=== PATIENT | male | born 1965 | race Caucasian/White ===

== ENCOUNTER 2017-09-19 15:10 | Inpatient (IN) | payer BC ==
[~2017-09-19] VITALS: Ht 177.8 cm; Wt 77.1 kg
--- NOTE | 2017-09-19 16:03 | DIAGNOSTIC IMAGING REPORT ---
SINGLE VIEW CHEST CLINICAL HISTORY: Atypical chest pain. FINDINGS: An AP, portable, upright chest radiograph is obtained. No prior studies are available for comparison at the time of dictation. The examination is degraded by portable technique and apical lordotic positioning. The cardiomediastinal silhouette is unremarkable. The lungs and pleural spaces are clear. No pneumothorax is seen. The bony thorax is grossly intact. IMPRESSION: No active disease in the chest. Electronically signed by: Gianluca Moore M.D. 09/19/2017 4:02 PM Dictated Date/Time: 09/19/2017 4:01 PM
[2017-09-19 16:14] LABS: BASO % 0.3 %; BASO ABS # 0.02 K/uL (0-0.2); EOS % 0.6 %; EOS ABS # 0.04 K/uL (0-0.5); HEMATOCRIT 47.4 % (42-52); HEMOGLOBIN 16.6 g/dL (14.0-18.0); IG# 0.01 K/uL (0.00-0.02); LYMPH % 12.1 %; LYMPH ABS # 0.86 K/uL (1.2-3.4); MEAN CELL VOLUME 89.4 fL (80-100); MEAN CORPUSCULAR HEMOGLOBIN 31.3 pg (25-34); MONO ABS # 0.64 K/uL (0.11-0.59); NEUT % 77.9 %; NEUT ABS # 5.54 K/uL (1.4-6.5); PLATELET COUNT 262 K/uL (130-400); RED CELL DISTRIBUTION WIDTH SD 42.6 fL (36.4-46.3); WHITE BLOOD COUNT 7.11 K/uL (4.8-10.8)
[2017-09-19] MEDS ORDERED: NITROGLYCERIN 2% OINTMENT 30GM TUBE EXT ONE (16:30)
[2017-09-19 16:31] LABS: ALBUMIN 3.6 gm/dl (3.4-5.0); CALCIUM 8.5 mg/dl (8.5-10.1); CREATININE 1.3 mg/dl (0.60-1.40); POTASSIUM 3.6 mmol/L (3.5-5.1)
[2017-09-19 16:36] LABS: CKMB 1.4 ng/ml (0.5-3.6); TOTAL PROTEIN 7.1 gm/dl (6.4-8.2)
[2017-09-19] MEDS ORDERED: ASPECOTC PO (16:44)
[2017-09-19] MEDS ORDERED: ONDANSETRON INJ 2 MG/ML 2 ML VIAL IV PRN (16:45)
[2017-09-19] MEDS ORDERED: MAGNESIUM HYDROXIDE SUSP 30 ML UDC PO PRN (16:45)
[2017-09-19] MEDS ORDERED: MoRPHine SULFATE 4 MG/ML 1 ML CARP\\VIAL IV PRN (16:45)
[2017-09-19] MEDS ORDERED: POLYETHYLENE (MIRALAX) 17 GM PACK PO PRN (16:45)
[2017-09-19] MEDS ORDERED: ACETAMINOPHEN 325 MG TAB PO PRN (16:45)
[2017-09-19] MEDS ORDERED: NITROGLYCERIN 0.4 MG SL PER TAB CHARGE SL PRN (16:45)
[2017-09-19] MEDS ORDERED: ALUMINUM/MAGNESIUM/SIMETH (MAALOX MAX) 30 ML UDC PO PRN (16:45)
[2017-09-19] MEDS ORDERED: METOPROLOL TARTRATE 25 MG TAB PO ONE (16:48)
[2017-09-19] MEDS ORDERED: LORAZEPAM 2 MG/ML 1 ML VIAL IV PRN (17:45)
[2017-09-19] MEDS ORDERED: GABAPENTIN 600 MG TAB PO SCH (17:45)
[2017-09-19] MEDS ORDERED: LABETALOL HCL IV 5 MG/ML 20ML IV PRN (17:45)
[2017-09-19] MEDS ORDERED: LISINOPRIL 2.5 MG TAB PO ONE (17:55)
--- NOTE | 2017-09-19 18:08 | EMERGENCY ROOM VISIT NOTE ---
History Report prepared by Kami: Alok Torrez Under the Supervision of: Dr. Akbar Schafer M.D. First contact with patient: 15:25 Chief Complaint: CHEST PAIN Stated Complaint: TIGHTNESS IN CHEST, ELBOWS ACHING History of Present Illness The patient is a 51 year old male who presents to the Emergency Room with complaints of improving chest pain beginning 2.5 hours ago. He was walking around at work when his pain began. He describes his pain as a feeling of "tightness", and rates it as a 4/10 in severity at worst. The patient states that he also experienced some pain in his bilateral elbows. He has a history of OH (s/p two stents), and states that he experienced pains in his arms at that time as well. He states that his symptoms do not feel particularly similar to his previous heart attack. The patient notes that he had pain present when he had his ECG taken upon arrival today, but currently has no pain. Pt denies LOC, headache, fevers, chills, diaphoresis, visual changes, neck pain, tearing pain radiating to the back, personal history or family history of aneurysm or pulmonary embolism, uncontrolled hypertension, breathing difficulties, leg swelling, coagulation abnormalities, prolonged travel, recent surgery or immobilization, nausea, vomiting, abdominal pain, melena, hematochezia, urinary symptoms, numbness, weakness, lymphadenopathy, rash, or other complaints. He is on baby aspirin daily. He does not follow up with cardiology regularly and does not have a PCP. Source of History: patient Onset: 2.5 hours ago Position: chest Symptom Intensity: 4/10 at worst Quality: other ("tightness") Timing: other (improving) Note: The patient states that he also experienced some pain in his bilateral elbows. Review of Systems See HPI for pertinent positives and negatives. A total of ten systems were reviewed and were otherwise negative. Past Medical & Surgical Medical Problems: (1) Chest pain (2) HLD (hyperlipidemia) (3) Myocardial infarction Surgical Problems: (1) History of cardiac cath (2) Hx of inguinal hernia repair Family History No pertinent family history stated. Social History Smoking Status: Never Smoker Occupation Status: employed Current/Historical Medications Scheduled Aspirin (Aspirin), 325 MG PO HS Allergies Coded Allergies: No Known Allergies (Unverified , 09/19/17) Physical Exam Vital Signs Date Time Temp Pulse Resp B/P (MAP) Pulse Ox O2 Delivery O2 Flow Rate FiO2 09/19/17 16:40 88 19 98 09/19/17 16:31 167/104 09/19/17 16:21 89 09/19/17 16:10 98 Room Air 09/19/17 16:09 97 Room Air 09/19/17 16:08 165/104 09/19/17 15:15 98 18 160/116 99 Room Air Physical Exam GENERAL: Awake, alert, well-appearing, in no distress HENT: Normocephalic, atraumatic. Oropharynx unremarkable. EYES: Normal conjunctiva. Sclera non-icteric. NECK: Supple. No nuchal rigidity. FROM. No masses. RESPIRATORY: Clear to auscultation. No wheezes. No rales. Normal respiratory effort. CARDIAC: Normal rate. Normal rhythm. No murmurs. No rubs. Extremities warm and well perfused. Pulses equal. No JVD. GI: Soft, non-distended. No tenderness to palpation. No rebound or guarding. No masses. RECTAL: Deferred. MUSCULOSKELETAL: Atraumatic. Chest examination reveals no tenderness. The back is symmetrical on inspection without obvious abnormality. There is no CVA tenderness to palpation. No joint edema. LOWER EXTREMITIES: Calves are equal size bilaterally and non-tender. No edema. No discoloration. NEURO: Normal sensorium. No sensory or motor deficits noted. SKIN: No rash or jaundice noted. Medical Decision & Procedures ER Provider Diagnostic Interpretation: Radiology results as stated below per my review and radiologist interpretation: SINGLE VIEW CHEST FINDINGS: An AP, portable, upright chest radiograph is obtained. No prior studies are available for comparison at the time of dictation. The examination is degraded by portable technique and apical lordotic positioning. The cardiomediastinal silhouette is unremarkable. The lungs and pleural spaces are clear. No pneumothorax is seen. The bony thorax is grossly intact. IMPRESSION: No active disease in the chest. Electronically signed by: Gianluca Moore M.D. 09/19/2017 4:02 PM Laboratory Results 09/19/17 16:00 Red Blood Count 5.30, Mean Corpuscular Volume 89.4, Mean Corpuscular Hemoglobin 31.3, Mean Corpuscular Hemoglobin Concent 35.0, Mean Platelet Volume 10.0, Neutrophils (%) (Auto) 77.9, Lymphocytes (%) (Auto) 12.1, Monocytes (%) (Auto) 9.0, Eosinophils (%) (Auto) 0.6, Basophils (%) (Auto) 0.3, Neutrophils # (Auto) 5.54, Lymphocytes # (Auto) 0.86, Monocytes # (Auto) 0.64, Eosinophils # (Auto) 0.04, Basophils # (Auto) 0.02 09/19/17 16:00 Test 09/19/17 16:00 09/19/17 16:06 White Blood Count 7.11 K/uL (4.8-10.8) Red Blood Count 5.30 M/uL (4.7-6.1) Hemoglobin 16.6 g/dL (14.0-18.0) Hematocrit 47.4 % (42-52) Mean Corpuscular Volume 89.4 fL (80-100) Mean Corpuscular Hemoglobin 31.3 pg (25-34) Mean Corpuscular Hemoglobin Concent 35.0 g/dl (32-36) Platelet Count 262 K/uL (130-400) Mean Platelet Volume 10.0 fL (7.4-10.4) Neutrophils (%) (Auto) 77.9 % Lymphocytes (%) (Auto) 12.1 % Monocytes (%) (Auto) 9.0 % Eosinophils (%) (Auto) 0.6 % Basophils (%) (Auto) 0.3 % Neutrophils # (Auto) 5.54 K/uL (1.4-6.5) Lymphocytes # (Auto) 0.86 K/uL (1.2-3.4) Monocytes # (Auto) 0.64 K/uL (0.11-0.59) Eosinophils # (Auto) 0.04 K/uL (0-0.5) Basophils # (Auto) 0.02 K/uL (0-0.2) RDW Standard Deviation 42.6 fL (36.4-46.3) RDW Coefficient of Variation 13.0 % (11.5-14.5) Immature Granulocyte % (Auto) 0.1 % Immature Granulocyte # (Auto) 0.01 K/uL (0.00-0.02) Anion Gap 6.0 mmol/L (3-11) Est Creatinine Clear Calc Drug Dose 69.4 ml/min Estimated GFR () 73.2 Estimated GFR (Non- 63.2 BUN/Creatinine Ratio 12.8 (10-20) Calcium Level 8.5 mg/dl (8.5-10.1) Magnesium Level 2.1 mg/dl (1.8-2.4) Total Bilirubin 0.6 mg/dl (0.2-1) Direct Bilirubin 0.1 mg/dl (0-0.2) Aspartate Amino Transf (AST/SGOT) 23 U/L (15-37) Alanine Aminotransferase (ALT/SGPT) 37 U/L (12-78) Alkaline Phosphatase 80 U/L (45-117) Total Creatine Kinase 92 U/L (39-308) Creatine Kinase MB 1.4 ng/ml (0.5-3.6) Creatine Kinase MB Ratio 1.5 (0-3.0) Total Protein 7.1 gm/dl (6.4-8.2) Albumin 3.6 gm/dl (3.4-5.0) Lipase 217 U/L (73-393) Bedside D-Dimer 147 ng/mlFEU (0-450) Bedside Troponin I 0.180 ng/ml (0-0.045) Laboratory results reviewed by me Medications Administered Medications (Trade) Dose Ordered Sig/Abdelrahman Route Start Time Stop Time Status Last Admin Dose Admin Nitroglycerin (Nitroglycerin 2% Oint) 1 inch NOW ONCE EXT 09/19/17 16:30 09/19/17 16:31 DC 09/19/17 16:49 1 INCH ECG Per My Interpretation Indication: chest pain Rate (beats per minute): 94 Rhythm: normal sinus Findings: other (Non-specific ST changes. No ST elevation. ) Comparison ECG Date: no prior available ED Course 1531: The patient was evaluated in room B8. A complete history and physical exam was performed. 1630: Ordered Nitroglycerin 2% Oint 1 inch EXT. 1635: Upon reexamination, the patient was resting comfortably. I discussed the test results and treatment plan with him. The patient will be evaluated for further management. Medical Decision Triage Nursing notes reviewed and agree them. The patient's history was concerning for chest pain. Differential diagnosis: Etiologies such as cardiac ischemia, aortic dissection, pulmonary embolism, pneumonia, pneumothorax, musculoskeletal, infections, pericarditis, myocarditis , esophageal rupture, gastrointestinal, as well as others were entertained. Physical examination: As above. ER treatment provided: Nitro ointment Patient took aspirin prior to arrival. On reassessment the patient felt well. He was pain-free. Diagnostic interpretation by me: The electrocardiogram was as above. The labs revealed an unremarkable CBC and chemistry panel. The patient has an elevated troponin concerning for ACS. Imaging studies: Chest x-ray as above The patient has an elevated troponin with a concerning history. Consultation: A consultation was placed with the hospitalist. The case was discussed and diagnostics were reviewed. The patient was evaluated in the ER for further treatment. Medication Reconcilliation Current Medication List: was personally reviewed by me Blood Pressure Screening Patient's blood pressure: Elevated blood pressure Blood pressure disposition: Referred to PCP Consults Time Called: 1630 Consulting Physician: Dr. Salvador Wang Hospitalist Returned Call: 1635 Discussed the patient's case. The patient will be evaluated for further treatment and disposition. Impression Primary Impression: NSTEMI (non-ST elevated myocardial infarction) Additional Impression: Substernal precordial chest pain Scribe Attestation The scribe's documentation has been prepared under my direction and personally reviewed by me in its entirety. I confirm that the note above accurately reflects all work, treatment, procedures, and medical decision making performed by me. Departure Information Dispostion Being Evaluated By Hospitalist Patient Instructions My [facility] Problem Qualifiers
[2017-09-19] MEDS ORDERED: MULTI-VITAMIN INFUSION INJ 10 ML, THIAMINE HCL INJ 100 MG, FoLIC ACID INJ 1 MG in SODIU... IV ONE (18:15)
[2017-09-19] MEDS ORDERED: GABAPENTIN 1200MG LOADING DOSE PO ONE (18:15)
--- NOTE | 2017-09-19 18:15 | History and Physical ---
History & Physical Date & Time of Service: September 19, 2017 at 17:53 Chief Complaint: Chest Pain Primary Care Physician: No Doctor, Assigned History of Present Illness Source: patient, hospital records Pt is 51 y/o M with PMH CAD s/p CA and 2 stents in 2010 at [facility] , HLD presented to ER with c/o CP. Patient states today at work around noon started with mid and left chest pain and bilateral arm/elbow pain described aching increased with walking associated with mild diaphoresis. Patient states that down with some decreased pain and one would walk again pain increased. He took two 325mg aspirin. States upon ER arrival had resolution of chest pain. In ER 1 inch Nitropaste placed. No further chest pains. Denies any associated shortness of breath, dizziness, palpitations. Patient reports has not followed up with PCP or cardiology for years. Has not been on simvastatin "for a while" . Taking aspirin 325 mg daily. Reports his been doing well without chest pain. States since CA notices shortness of breath with extreme exercise ( throwing multiple hay sandi). Denies any increased shortness of breath or noted decreased exercise tolerance. Drinks 3-6 beers a night. Last drink 9 PM last night. Denies fever/chills, diaphoresis, N/V/D/C, DE SOUZA, dizziness, syncope, vision changes, neck pain, orthopnea, palpitations, cough, sore throat, choking , otalgia, rhinorrhea, abdominal pain, indigestion, paresthesias, weakness, extremity weakness, extremity edema, rashes, urinary symptoms, weight loss. Past Medical/Surgical History Medical Problems: (1) HLD (hyperlipidemia) Status: Chronic (2) Myocardial infarction Status: Resolved Surgical Problems: (1) History of cardiac cath Permanent Comment: 2010: stent x 2 at [facility] Status: Resolved (2) Hx of inguinal hernia repair Status: Resolved Family History FH: hyperlipidemia FHx: brain cancer Social History Smoking Status: Never Smoker Smokeless Tobacco Use: Yes (1 can snuff daily) Alcohol Use: 3-6 beers a night Drug Use: none Occupational Status: employed Allergies Coded Allergies: No Known Allergies (Unverified , 09/19/17) Home Medications Scheduled Aspirin (Aspirin), 325 MG PO HS Review of Systems See HPI for pertinent positives & negatives. All other systems reviewed and were otherwise negative Physical Exam Vital Signs Date Time Temp Pulse Resp B/P (MAP) Pulse Ox O2 Delivery O2 Flow Rate FiO2 09/19/17 17:05 37.2 88 19 167/104 98 09/19/17 16:40 88 19 98 09/19/17 16:31 167/104 09/19/17 16:21 89 09/19/17 16:10 98 Room Air 09/19/17 16:09 97 Room Air 09/19/17 16:08 165/104 09/19/17 15:15 98 18 160/116 99 Room Air General Appearance: WD/WN, no apparent distress Head: normocephalic, atraumatic Eyes: normal inspection, PERRL, sclerae normal ENT: hearing grossly normal, pharynx normal, + pertinent finding (Mucous membranes moist) Neck: supple, no JVD, trachea midline Respiratory/Chest: lungs clear, normal breath sounds, no respiratory distress Cardiovascular: regular rate, rhythm, no murmur, normal peripheral pulses Abdomen/GI: normal bowel sounds, non tender, soft Extremities/Musculoskelatal: normal inspection, no calf tenderness, normal capillary refill, no pedal edema, normal range of motion, non-tender Neurologic/Psych: alert, normal mood/affect, oriented x 3 Skin: normal color, warm/dry Diagnostics Laboratory Results Results Past 24 Hours Test 09/19/17 16:00 09/19/17 16:06 09/19/17 17:39 09/19/17 17:40 Range/Units White Blood Count 7.11 4.8-10.8 K/uL Red Blood Count 5.30 4.7-6.1 M/uL Hemoglobin 16.6 14.0-18.0 g/dL Hematocrit 47.4 42-52 % Mean Corpuscular Volume 89.4 80-100 fL Mean Corpuscular Hemoglobin 31.3 25-34 pg Mean Corpuscular Hemoglobin Concent 35.0 32-36 g/dl Platelet Count 262 130-400 K/uL Mean Platelet Volume 10.0 7.4-10.4 fL Neutrophils (%) (Auto) 77.9 % Lymphocytes (%) (Auto) 12.1 % Monocytes (%) (Auto) 9.0 % Eosinophils (%) (Auto) 0.6 % Basophils (%) (Auto) 0.3 % Neutrophils # (Auto) 5.54 1.4-6.5 K/uL Lymphocytes # (Auto) 0.86 1.2-3.4 K/uL Monocytes # (Auto) 0.64 0.11-0.59 K/uL Eosinophils # (Auto) 0.04 0-0.5 K/uL Basophils # (Auto) 0.02 0-0.2 K/uL RDW Standard Deviation 42.6 36.4-46.3 fL RDW Coefficient of Variation 13.0 11.5-14.5 % Immature Granulocyte % (Auto) 0.1 % Immature Granulocyte # (Auto) 0.01 0.00-0.02 K/uL Sodium Level 140 136-145 mmol/L Potassium Level 3.6 3.5-5.1 mmol/L Chloride Level 110 98-107 mmol/L Carbon Dioxide Level 24 21-32 mmol/L Anion Gap 6.0 3-11 mmol/L Blood Urea Nitrogen 17 7-18 mg/dl Creatinine 1.30 0.60-1.40 mg/dl Est Creatinine Clear Calc Drug Dose 69.4 ml/min Estimated GFR () 73.2 Estimated GFR (Non- 63.2 BUN/Creatinine Ratio 12.8 10-20 Random Glucose 113 70-99 mg/dl Calcium Level 8.5 8.5-10.1 mg/dl Magnesium Level 2.1 1.8-2.4 mg/dl Total Bilirubin 0.6 0.2-1 mg/dl Direct Bilirubin 0.1 0-0.2 mg/dl Aspartate Amino Transf (AST/SGOT) 23 15-37 U/L Alanine Aminotransferase (ALT/SGPT) 37 12-78 U/L Alkaline Phosphatase 80 45-117 U/L Total Creatine Kinase 92 39-308 U/L Creatine Kinase MB 1.4 0.5-3.6 ng/ml Creatine Kinase MB Ratio 1.5 0-3.0 Total Protein 7.1 6.4-8.2 gm/dl Albumin 3.6 3.4-5.0 gm/dl Lipase 217 73-393 U/L Bedside D-Dimer 147 0-450 ng/mlFEU Bedside Troponin I 0.180 0-0.045 ng/ml Diagnostic Radiology CXR: IMPRESSION: No active disease in the chest. EKG EKG: NSR, rate 94. no ST elevation noted Impression Assessment and Plan CHEST PAIN R/O ACS. Risk factors: HTN, hyperlipidemia, hx CAD S/P CA and stent x2 in 2011. Pt presented to ER with c/o mid/left chest pain and bilateral arm pain x 2.5 hrs. Nitropaste placed in ER. No further CP. In ER no acute ST elevation noted. POC troponin: 0.18. BP: 167/104, P: 98-88, 97% on RA, R: 19 -Monitor Vitals -Repeat EKG in am -Will trend troponin -echo -lipid panel -ASA & beta petra -Nitro prn CP and repeat EKG for CP -Morphine prn CP -Cardiology consult HTN BP: 167/104, 182/110 -Lopressor 12.5 mg p.o. now and twice daily -Lisinopril 2.5 mg daily -Labetalol 10 mg IV every 8 hours as needed SBP > 160 ETOH USE Patient drinks 3-6 beers nightly. Last drink 9 PM last night. No history of alcohol withdrawal, seizure or DTs in the past -Alcohol protocol -Thiamine and folic acid p.o. daily TOBACCO USE -Discussed chewing tobacco cessation ELEVATED CREATININE Cr: 1.3. GFR: 63. No baseline labs available -monitor renal functions DVT Prophylaxis -Heparin SQ Disposition admit tele Full Code Pt does not have PCP for routine care Pt was seen with Dr Frnaco. See addendum ATTENDING ADDENDUM Patient seen and examined care coordinated with Myrtle Bolden PA-C This is a 51-year-old male who has not been following with any physician, presents with chest pain, dyspnea on exertion Symptom relief after sublingual nitro cardiac marker negative Monitor in telemetry for serial cardiac markers, resting echo , Cardiology evaluation History of EtOH abuse: Reports of drinking 4-6 beer every day Denies of any withdrawal symptoms in the past Order for banana bag Neurontin per alcohol withdrawal protocol Peggy Franco MD Resuscitation Status VTE Prophylaxis Will order VTE Prophylaxis: Yes
[2017-09-19 18:28] LABS: PTT PATIENT 26.1 SECONDS (21.0-31.0)
[2017-09-19 18:30] VITALS: BP 182/110; PULSE 80; TEMP 36.8; O2SAT 99; Ht 177.8 cm; Wt 77.1 kg
[2017-09-19 19:04] VITALS: BP 159/89
[2017-09-19 19:22] VITALS: BP 153/83; PULSE 69; TEMP 36.7; O2SAT 97
[2017-09-19] MEDS: METOPROLOL TARTRATE 25 MG TAB PO SCH (21:51)
[2017-09-19] MEDS: NITROGLYCERIN 2% OINTMENT 30GM TUBE EXT SCH (21:52)
[2017-09-19] MEDS ORDERED: HEPARIN SOD 5000 UNIT/0.5 ML CARP SQ SCH (22:00)
[2017-09-19 23:50] VITALS: BP 132/70; PULSE 62; TEMP 36.9; O2SAT 97
[2017-09-20] VITALS (15 sets, daily range): BP systolic 120–161; BP diastolic 58–99; PULSE 57–84; TEMP 36.6–37; O2SAT 94–97
[2017-09-20] MEDS: GABAPENTIN 600MG Q6H DOSE PO SCH ×2 (00:15→05:46)
[2017-09-20] MEDS ORDERED: HEPARIN 25,000 UNIT/500ML D5W 500 ML IV SCH (01:00)
[2017-09-20] MEDS: NITROGLYCERIN 2% OINTMENT 30GM TUBE EXT SCH (04:18)
[2017-09-20 06:29] LABS: PTT PATIENT 49.9 SECONDS (21.0-31.0)
[2017-09-20 08:37] LABS: BASO % 0.1 %; BASO ABS # 0.01 K/uL (0-0.2); EOS % 1.4 %; EOS ABS # 0.11 K/uL (0-0.5); HEMATOCRIT 43.7 % (42-52); IG# 0.03 K/uL (0.00-0.02); LYMPH % 13.6 %; LYMPH ABS # 1.06 K/uL (1.2-3.4); MEAN CELL VOLUME 89.7 fL (80-100); MEAN CORPUSCULAR HEMOGLOBIN 30.8 pg (25-34); MEAN CORPUSCULAR HGB CONC 34.3 g/dl (32-36); MEAN PLATELET VOLUME 10.2 fL (7.4-10.4); MONO % 11.4 %; MONO ABS # 0.89 K/uL (0.11-0.59); NEUT % 73.1 %; NEUT ABS # 5.72 K/uL (1.4-6.5); PLATELET COUNT 226 K/uL (130-400); RED CELL DISTRIBUTION WIDTH SD 43.1 fL (36.4-46.3); WHITE BLOOD COUNT 7.82 K/uL (4.8-10.8)
[2017-09-20] MEDS: LISINOPRIL 2.5 MG TAB PO SCH (09:00)
[2017-09-20] MEDS: METOPROLOL TARTRATE 25 MG TAB PO SCH ×2 (09:00→20:41)
[2017-09-20] MEDS: THIAMINE HCL 100 MG TAB PO SCH (09:00)
[2017-09-20] MEDS: ASPIRIN 81 MG ECTAB PO SCH (09:00)
--- NOTE | 2017-09-20 09:08 | Clinical Documentation Query ---
CLINICAL DOCUMENTATION QUERY 51 yo male admitted with chest pain/SOB/diaphoresis. Patient has a history of SC and initial troponin was 1.660, trending down to 0.575. EKG states ST elevation with inferior injury. In your clinical opinion is this patient being managed for: ( ) STEMI ( ) Not Agree ( x ) Other explanation of clinical findings (Please Explain. If no explanation given, this would be considered a no response.) NSTEMI ( ) Unable to determine ( ) Need to Discuss (Please call CDS via extension or qliq. If no interaction occurs this is considered a no response.) The medical record reflects the following clinical findings, treatment, and risk factors. Clinical Indicators: As above Treatment: Nitroglycerine, serial ekg, serial troponins, telemetry, Cardiology consult Risk Factors: Hx SC, CAD, HTN, hyperlipidemia Please clarify and document your clinical opinion in the progress notes and discharge summary. Terms such as "probable", "suspected", "likely", "questionable", "possible", or "still to be ruled out" are acceptable. IF IN AGREEMENT, YOU MUST DOCUMENT ABOVE DIAGNOSTIC STATEMENT IN DAILY PROGRESS NOTES AND DISCHARGE SUMMARY. This document is not part of the patient's record. Thank You, Keya Snider RN [phone]
[2017-09-20] MEDS ORDERED: PERFLUTREN LIPID MICROSPHERE (DEFINITY) IV ONE (09:25)
[2017-09-20 09:40] LABS: CALCIUM 8.2 mg/dl (8.5-10.1); CREATININE 0.98 mg/dl (0.60-1.40)
--- NOTE | 2017-09-20 09:50 | ECHOCARDIOGRAM REPORT ---
*NOTICE TO RECEIVING DEMOCRAT AGENCY This information is strictly Confidential and protected under [place] law. [place] law prohibits you from making any further disclosure of this information unless further disclosure is expressly permitted by the written consent of the person to whom it pertains or is authorized by law. A general authorization for the release of medical or other information is not sufficient for this purpose. Hospital accepts no responsibility if the information is made available to any other person, INCLUDING THE PATIENT. Interpretation Summary * Name: PHILIP MONTAÑO Study Date: 09/20/2017 09:02 AM BP: 129/77 mmHg * Patient Location: C.2T\S\S230\S\2 HR: 63 * : 1965 (M/d/yyyy) Gender: Male Height: 70 in * Age: 51 yrs Ethnicity: CA Weight: 183 lb * Ordering Physician: Peggy Franco * Performed By: Shanon Garrison RDCS * * Reason For Study: CHEST PAIN * BSA: 2.0 m2 * -- Conclusions -- * The left ventricle is normal in size. * There is moderate concentric left ventricular hypertrophy. * There is hypokinesis of the posterior wall at the base as well as the apical portion of the inferior and inferoseptal costa * Ejection Fraction = 50-55%. * There is no significant valvular disease Procedure Details * A complete two-dimensional transthoracic echocardiogram was performed (2D, M-mode, Doppler and color flow Doppler). * A contrast injection of Definity was performed to improve assessment of LV function. * Contrast was injected into an intravenous site in the left arm. * One vial of Definity ultrasound contrast was diluted in normal saline to a total volume of 10 ml. A total of '3' ml of solution was administered during imaging. * Lot # [id number] of Definity utilized for procedure. * Expiration date 07/09. Left Ventricle * The left ventricle is normal in size. * There is moderate concentric left ventricular hypertrophy. * Ejection Fraction = 50-55%. * There is hypokinesis of the posterior wall at the base as well as the apical portion of the inferior and inferoseptal costa Right Ventricle * The right ventricle is normal in size and function. Atria * The left atrial size is normal. * Right atrial size is normal. * No ASD detected; PFO is not assessed. Mitral Valve * The mitral valve anatomy is normal. * There is no mitral valve stenosis. * There is trace mitral regurgitation. Tricuspid Valve * The tricuspid valve anatomy is normal. * There is no tricuspid stenosis. * There is trace tricuspid regurgitation. * Right ventricular systolic pressure is normal. Aortic Valve * The aortic valve is trileaflet. * No hemodynamically significant valvular aortic stenosis. * No aortic regurgitation is present. Pulmonic Valve * The pulmonic valve is not well visualized. Great Vessels * The aortic root is normal size. Pericardium/Pleural * There is no pericardial effusion. Great Vessels * Normal inferior vena cava diameter and respiratory variation suggests normal central venous pressure. MMode 2D Measurements and Calculations IVSd 1.2 cm IVSs 1.4 cm LVIDd 4.2 cm LVIDs 3.3 cm LVPWd 0.75 cm LVPWs 1.2 cm IVS/LVPW 1.6 FS 22.1 % EDV(Teich) 79.2 ml ESV(Teich) 43.6 ml EF(Teich) 44.9 % EDV(cubed) 74.8 ml ESV(cubed) 35.4 ml EF(cubed) 52.6 % % IVS thick 12.7 % % LVPW thick 65.4 % LV mass(C)d 135.3 grams LV mass(C)dI 67.3 grams/m\S\2 LV mass(C)s 142.1 grams LV mass(C)sI 70.7 grams/m\S\2 CO(Teich) 2.2 l/min CI(Teich) 1.1 l/min/m\S\2 SV(Teich) 35.5 ml SI(Teich) 17.7 ml/m\S\2 CO(cubed) 2.4 l/min CI(cubed) 1.2 l/min/m\S\2 SV(cubed) 39.4 ml SI(cubed) 19.6 ml/m\S\2 ACS 1.3 cm asc Aorta Diam 2.9 cm LVOT diam 1.9 cm LVOT area 2.8 cm\S\2 LVAd ap4 28.5 cm\S\2 LVLd ap4 8.0 cm EDV(MOD-sp4) 82.7 ml LVAs ap4 17.8 cm\S\2 LVLs ap4 7.1 cm ESV(MOD-sp4) 37.3 ml EF(MOD-sp4) 54.9 % LVAd ap2 33.0 cm\S\2 LVLd ap2 8.9 cm EDV(MOD-sp2) 98.2 ml LVAs ap2 21.3 cm\S\2 LVLs ap2 8.1 cm ESV(MOD-sp2) 45.4 ml EF(MOD-sp2) 53.8 % CO(MOD-sp4) 2.8 l/min CI(MOD-sp4) 1.4 l/min/m\S\2 SV(MOD-sp4) 45.4 ml SI(MOD-sp4) 22.6 ml/m\S\2 CO(MOD-sp2) 3.3 l/min CI(MOD-sp2) 1.6 l/min/m\S\2 SV(MOD-sp2) 52.8 ml SI(MOD-sp2) 26.3 ml/m\S\2 Doppler Measurements and Calculations MV E max collin 87.3 cm/sec MV A max collin 59.2 cm/sec MV E/A 1.5 MV dec time 0.15 sec Ao V2 max 124.9 cm/sec Ao max PG 6.2 mmHg Ao max PG (full) 1.7 mmHg SONAL(V,A) 2.4 cm\S\2 SONAL(V,D) 2.4 cm\S\2 LV V1 max PG 4.6 mmHg LV V1 max 106.7 cm/sec PA V2 max 62.6 cm/sec PA max PG 1.6 mmHg
[2017-09-20] MEDS ORDERED: LORAZEPAM 2 MG/ML 1 ML VIAL IV PRN (10:00)
[2017-09-20] MEDS ORDERED: FENTANYL CITRATE INJ 50 MCG/1 ML 2 ML VIAL ONE (10:34)
[2017-09-20] MEDS ORDERED: HEPARIN SOD (PORCINE) 1000 UNIT/ML 10 ML VIAL ONE (10:34)
[2017-09-20] MEDS ORDERED: MIDAZOLAM HCL 1 MG/ML 2ML VIAL ONE (10:34)
[2017-09-20] MEDS ORDERED: NITROGLYCERIN/D5W 100MCG/ML 20ML SYR ONE (10:35)
[2017-09-20] MEDS ORDERED: NiCARDipine HCL INJ 2.5 MG/ML 10 ML AMP ONE (10:35)
[2017-09-20] MEDS ORDERED: ASPIRIN 81 MG CHEW ONE (11:11)
--- NOTE | 2017-09-20 11:11 | Pre Sedation Assessment ---
Pre Sedation Assessment General Date of Sedation: September 20, 2017. Vital Signs Past 12 Hours Date Time Temp Pulse Resp B/P (MAP) Pulse Ox O2 Delivery O2 Flow Rate FiO2 09/20/17 08:10 36.9 57 19 123/76 (92) 96 Room Air 09/20/17 08:00 Room Air 09/20/17 04:00 Room Air 09/20/17 03:20 36.6 63 18 129/77 (94) 97 Room Air 09/19/17 23:59 Room Air 09/19/17 23:50 36.9 62 16 132/70 (90) 97 Pre-Sedation Airway Assessment Smoking Status: Never Smoker Hx of Sleep Apnea: No Short Thick Neck: No Thyro-mental Distance: > 3 Finger Breadths Oral Cavity: Chipped Teeth Mallampati Classification: Class I ASA Classification: Class III NPO Status Date of Last Intake of Fluids: September 19, 2017 Time of Last Intake of Fluids: 1800 Date of Last Intake of Solids: September 19, 2017 Time of Last Intake of Solids: 1800 Procedure Planning Contraindications for Sedation: None Current Medications Reviewed: Yes Notes The planned sedation has been discussed with the patient. Informed Consent was obtained. I have identified the patient, determined the appropriateness of sedation and have assessed the patient immediately prior to the procedure. All medicine(s) and interventions are by my order.
--- NOTE | 2017-09-20 12:24 | [facility] Post Operative Brief Note ---
Preliminary Procedure Note Procedure Date September 20, 2017. Pre-Procedure Diagnosis Non STEMI AUC Score 9 Post-Procedure Diagnosis Severe CAD (Culprit lesion ulcerated 80% mid LAD stenosis. Chronic right coronary occlusion) Procedure(s) Performed Coronary Angiography, Left Heart Cath Shipping And Receiving Material Handler Dr. Ed Olivera Rn Call Center(s) Amber almendarez Estimated Blood Loss <15cc Medication(s) Fentanyl (12.5 mcg IV), Heparin (5000 units IV), Nicardipine (250 mcg intra- arterial after arterial sheath inserted), Versed (1 mg IV), Lidocaine 1% (Local infiltration) Preliminary Findings Right dominant coronary anatomy with diffuse atherosclerosis Chronic right coronary occlusion at mid vessel with extensive stents visible. Distal vessel fills via [id number] collaterals Left main large caliber length with mild irregularities Left anterior descending: Type III vessel, mid vessel culprit ulcerated lesion 80% at and involving origin of large septal branch, after large diagonal branch LAD diagonal long 40% proximal Left circumflex large but nondominant with very large bifurcating obtuse marginal and moderate-sized AV groove portion supplying large atrial branch and collateral fill to the distal right coronary artery. Obtuse marginal 40% long narrowing in its proximal portion LVEDP 9 Recommendations PCI without planned CABG Specimens None Fluids (cc crystalloids) 68 Anesthesia Start time: 1118, End time 1140 Procedural Complication(s) None Disposition Referred for PCI same setting
[2017-09-20] MEDS ORDERED: ROSUVASTATIN CALCIUM 20 MG TAB PO ONE (12:26)
[2017-09-20] MEDS ORDERED: TICAGRELOR 90 MG TAB PO ONE (12:27)
--- NOTE | 2017-09-20 12:36 | CARDIOLOGY CONSULTATION ---
DATE OF CONSULTATION: 09/20/2017 REFERRING PHYSICIAN: German Garza MD INDICATIONS: Non-ST segment elevation myocardial infarction crescendo angina. HISTORY OF PRESENT ILLNESS: The patient is a 51-year-old male with history of known coronary artery disease having undergone prior coronary interventions with patient receiving stenting to "the vessel to the back of his heart" in 2010 at [facility] following a myocardial infarction. His underlying medical problems include history of hyperlipidemia, but no prior history of hypertension, familial history of coronary artery disease and marked hyperlipidemia. The patient presents now noting while at work on the date of admission describing pressure pain consistent with angina radiating to both arms and elbows with mild diaphoresis. Symptoms resolved on rest and 1 aspirin; however, over time began to increase activities, symptoms reoccurred. He presented to the Emergency Room where pain had resolved. He received topical nitrates. Initial troponin was elevated. He is referred now for further evaluation. He denies any history of rheumatic fever or scarlet fever. Notes no history of TIA or stroke. Notes no melena or hematochezia, dysuria or hematuria. Has been off cardiac medications including a lipid-lowering therapy. Appetite and weight have been stable. He has been physically active. Drinks approximately 6 beers per day. ALLERGIES: None. MEDICATIONS: At home are aspirin 1 tablet per day. PAST SURGICAL HISTORY: Notable for herniorrhaphy repair, coronary intervention as described. FAMILY HISTORY: Positive for marked hyperlipidemia in mother. SOCIAL HISTORY: The patient resides in [facility]. He works as a service and repair supervisor, construction site. He is a nonsmoker, chews tobacco. Drinks as noted approximately 6 beers per day. He is physically active usually with recent limitations as described above. PHYSICAL EXAMINATION: VITAL SIGNS: Heart rate is 57, blood pressure is 123/76. HEENT: Normocephalic, atraumatic. Nares without discharge. Throat was clear. NECK: Supple without thyromegaly, lymphadenopathy, JVD or bruit. LUNGS: Clear to auscultation. CARDIOVASCULAR: Regular. There is no S3 gallop. There is no audible murmur or rub. PMI is nondisplaced. ABDOMEN: Soft, nontender. There is no palpable hepatosplenomegaly, no hepatojugular reflux. EXTREMITIES: Without cyanosis or clubbing. There is no peripheral edema. There are intact distal pulses at 2/4 dorsalis pedis and posterior tibialis. Both femoral arteries were palpable with 2+ pulses. No bruit. Right radial pulse is intact. LABORATORY STUDIES: Sodium is 140, potassium is 4.0, chloride is 110, bicarbonate is 26, BUN is 13, creatinine is 0.98. Cholesterol is 276, LDL is 206, HDL is 40. The patient is anticoagulated with heparin. Echocardiogram per initial review reveals hypokinesis of the posterior wall at the base as well as hypokinesis of the apical inferior and inferoseptal costa. Ejection fraction mildly depressed at 50-55%. Chest x-ray reveals no infiltrate or edema. EKG this morning reflects sinus rhythm with early repolarization changes. Initial EKG on presentation demonstrated a minor ST elevation in inferior leads. IMPRESSION AND PLAN: A 51-year-old male with history of marked hyperlipidemia, known coronary disease presents with symptoms classic for crescendo angina, though asymptomatic on presentation. He has been appropriately anticoagulated. Echocardiogram performed as noted this morning. He has been kept n.p.o. Discussed findings in detail. Will refer for diagnostic cardiac catheterization. Procedure and risks explained in detail as well as some additional risks of coronary intervention if indicated and potential need for urgent bypass surgery. All risks were explained. The patient understands and we will plan on proceeding this morning with further recommendations pending. He has already been appropriately begun on beta petra, aspirin and lisinopril. Ultimately, the patient will need aggressive management of underlying lipid disease.
--- NOTE | 2017-09-20 13:01 | Post Sedation Assessment ---
Post Sedation Assessment General Date of Sedation September 20, 2017. Vital Signs: Vital Signs Past 12 Hours Date Time Temp Pulse Resp B/P (MAP) Pulse Ox O2 Delivery O2 Flow Rate FiO2 09/20/17 12:40 64 16 122/72 (89) 96 Room Air 09/20/17 12:25 63 16 115/74 (88) 99 Mask 3 09/20/17 12:04 37.0 59 19 125/78 (94) 94 Room Air 09/20/17 08:10 36.9 57 19 123/76 (92) 96 Room Air 09/20/17 08:00 Room Air 09/20/17 04:00 Room Air 09/20/17 03:20 36.6 63 18 129/77 (94) 97 Room Air Post Procedure Recovery Score Activity: (2) Moves 4 extremities * Respiration: (2) Deep breath/cough Circulation: (2) +/-20% PreAnes Value Consciousness: (2) Fully Awake Oxygen Saturation: (2) > 92% On Room Air Post Anesthesia Score: 10 Discharge Sedation Level of Care: Fast Track Phase II Post Sedation Plan On clinical assessment, the patient appears to have tolerated the sedation without complications. Patient is recovering as anticipated. Patient will continue to be monitored by nursing and may be discharged when sedation discharge criteria are met per below protocol. Upon Completions of procedure and additional 15 minutes continue every 5 minute vital signs and the P.A.R. score; then discharge to a Phase I or Fast Track to Phase II per the following guidelines: * Discharge Patient to appropriate Phase II area if PAR is 8 or greater or return to pre- procedure baseline. The post - procedure orders will be as directed. * If PAR score is less than 8 or not return to pre-procedure baseline then patient will follow Phase I monitoring till PAR is reached for Phase II. The Phase I may be done in procedure room or may call to secure a Phase I area. * If naloxone or flumazenil are used for reversal, hold in Phase I for an additional 60 -120 minutes before discharge to Phase II. Please call the Sedation Physician to re-evaluate and complete post-note for discharge to Phase II area. Do NOT discharge from procedure sedation or Phase 1 until post- sedation evaluation note is complete by procedure /sedation MD Sedation Discharge Instructions to be given to the patient at discharge to home.
--- NOTE | 2017-09-20 13:03 | [facility] Post Operative Brief Note ---
Preliminary Procedure Note Procedure Date September 20, 2017. Pre-Procedure Diagnosis Non STEMI AUC Score 9 Post-Procedure Diagnosis Severe CAD (Culprit lesion ulcerated 80% mid LAD stenosis. Chronic right coronary occlusion) Procedure(s) Performed Drug Eluting Stent Appliance Mechanic alfredito Agri Business Agent(s) Amber almendarez Estimated Blood Loss <15cc Medication(s) Fentanyl (12.5 mcg IV), Heparin (5000 units IV), Nicardipine (250 mcg intra- arterial after arterial sheath inserted), Nitroglycerin, Versed (1 mg IV), Lidocaine 1% (Local infiltration) Ticagrelor Preliminary Findings Successful PCI of mid LAD with single drug-eluting stent (3.0 x 18 Osman). Recommendations PCI without planned CABG Specimens None Procedural Complication(s) None Disposition PCU
[2017-09-20] MEDS: GABAPENTIN 600MG Q8H DOSE PO SCH ×2 (14:16→22:09)
[2017-09-20] MEDS ORDERED: SODIUM CHLORIDE 0.9% 1000ML 1,000 ML IV SCH (15:00)
[2017-09-20] MEDS: GABAPENTIN 600MG Q12H DOSE PO SCH (17:44)
--- NOTE | 2017-09-20 18:51 | Cardiac Catheterization ---
Procedure Note Procedure Date September 20, 2017. Pre-Procedure Diagnosis Non STEMI AUC Score 8 Post-Procedure Diagnosis Severe CAD, Successful PCI Procedure(s) Performed Drug Eluting Stent Service Worker Fermin Amusement Equipment Operator(s) Glunt Estimated Blood Loss 10 Medication(s) Fentanyl, Heparin, Nitroglycerin, Versed, Lidocaine 1% Ticagrelor Summary of Findings Indication: High-risk NSTEMI Access: 6Fr Right Radial artery Catheters: EBU 3.5 guide Findings: For full details of patient's coronary angiography please cath report dictated by Dr. Olivera. Briefly, patient found to have severe multi-vessel disease including a 90 % stenosis involving the mid LAD. Decision to proceed with PCI. -- PCI -- Antithrombotic therapy: Heparin, ticagrelor Procedure: LM cannulated with EBU 3.5 guide BMW wire passed across lesion into distal vessel Mid LAD lesion predilated with 2.5 compliant balloon Dilated lesion stented with 3.0 x 18 Osman GABI Stent post-dilated with stent balloon. IC vasodilators administered for spasm Post procedure HERNÁN 3 flow, stent well expanded with minimal residual stenosis and no apparent cardiac complications. Arterial Closure: TR Band Summary: 1. Successful PCI of mid LAD with single GABI (3.0 x 18 Osman). Recommendations: To PCU for continued monitoring Loaded with Ticagrelor 180mg in pharmaceutical laboratory technician Continue dual-antiplatelet therapy for at least 1 year Continue statin, and ASCVD risk factor modification per Dr. Olivera Consult cardiac Rehab Hemodynamics Rest Ao: 115/60/83 Final Ao: 118/61/85 LV: 107/9 Recommendations PCI without planned CABG Specimens None Radiation Exposure (mGy) 1884 Contrast (mls) total 120 Fluids (cc crystalloids) 146 Drains none Anesthesia moderate Procedural Complication(s) None Disposition PCU ACC Data Cardiac Status Clinical evaluation leading to the procedure CAD Presntation: Non STEMI Anginal Classification: CCS IV Heart Failure: No, NYHA Class: CCS I Cardiogenic Shock w/in 24Hrs: No Cardiac Arrest w/in 24Hrs: No Imaging studies past 6 months: Yes Stress studies past 6 months: No Standard Exercise Stress Test: No Stress Echocardiogram: No Diagnostic Physician's Name: Ed Olivera M.D. Status: Urgent Closure Device Percutaneous Entry Location: Radial Closure Device: Radial Band Recommendations: PCI without planned CABG PCI Indication: PCI for high risk Non-STEMI Lesion Segment Name: mid LAD Culprit Artery: Yes Stenosis Prior to Rx (%): 90 Chronic Total Occlusion: No IVUS: No FFR: No Pre-Procedure HERNÁN Flow: 3 Previously Treated Lesion: No Lesion Complexity: Non-High/Non-C Lesion Length (mm): 12 Thrombus Present: Yes Bifurcation Lesion: No Guidewire Across Lesion: Yes Guidewire: Stenosis Post-Procedure (%): 0 Post-Procedure HERNÁN Flow: 3 Device(s) Deployed: Yes Intraprocedure Events Significant Dissection: No Perforation: No
--- NOTE | 2017-09-20 20:41 | Progress Note ---
Medicine Progress Note Date & Time of Visit: September 20, 2017 at 20:36. Subjective seen resting in bed, comfortable chest pain free no dyspnea, nausea no other symptoms awaiting Cardiac Cath Objective Last 8 Hrs Date Time Temp Pulse Resp B/P (MAP) Pulse Ox O2 Delivery O2 Flow Rate FiO2 09/20/17 18:44 36.8 72 18 161/99 (119) 97 Room Air 09/20/17 17:46 70 18 147/58 (87) 95 09/20/17 16:46 84 18 132/85 (101) 95 09/20/17 16:00 Room Air 09/20/17 15:46 57 18 124/78 (93) 96 Room Air 09/20/17 15:05 36.9 67 18 142/78 (99) 97 Room Air 09/20/17 14:09 120/79 (93) 09/20/17 13:54 127/78 (94) 09/20/17 13:39 132/74 (93) 09/20/17 13:25 126/79 (95) 09/20/17 13:10 125/72 (89) 09/20/17 12:45 127/71 (89) 09/20/17 12:40 64 16 122/72 (89) 96 Room Air Physical Exam: General-oriented x 3 , not in distress Head- atraumatic Eyes- PERRL, EOMI, anicteric ENT- oropharynx clear Neck- supple, no JVD, no adenopathy, no thyromegaly Lungs- clear to auscultation bilaterally Heart- regular rhythm; no murmur, normal rate Abdomen- normal bowel sounds, soft, nontender Extremities- no pretibial edema, no calf tenderness; peripheral pulses intact Neuro- alert, oriented x 3; no gross focal deficits Skin- warm & dry Laboratory Results: Last 24 Hours Test 09/19/17 22:33 09/20/17 05:49 09/20/17 05:52 09/20/17 06:35 Troponin I 1.660 ng/ml 0.575 ng/ml White Blood Count 7.82 K/uL Red Blood Count 4.87 M/uL Hemoglobin 15.0 g/dL Hematocrit 43.7 % Mean Corpuscular Volume 89.7 fL Mean Corpuscular Hemoglobin 30.8 pg Mean Corpuscular Hemoglobin Concent 34.3 g/dl Platelet Count 226 K/uL Mean Platelet Volume 10.2 fL Neutrophils (%) (Auto) 73.1 % Lymphocytes (%) (Auto) 13.6 % Monocytes (%) (Auto) 11.4 % Eosinophils (%) (Auto) 1.4 % Basophils (%) (Auto) 0.1 % Neutrophils # (Auto) 5.72 K/uL Lymphocytes # (Auto) 1.06 K/uL Monocytes # (Auto) 0.89 K/uL Eosinophils # (Auto) 0.11 K/uL Basophils # (Auto) 0.01 K/uL RDW Standard Deviation 43.1 fL RDW Coefficient of Variation 13.0 % Immature Granulocyte % (Auto) 0.4 % Immature Granulocyte # (Auto) 0.03 K/uL Activated Partial Thromboplast Time 49.9 SECONDS Partial Thromboplastin Ratio 1.9 Magnesium Level 2.1 mg/dl Triglycerides Level 149 mg/dl Cholesterol Level 276 mg/dl HDL Cholesterol 40 mg/dl LDL Cholesterol, Calculated 206 mg/dl VLDL Cholesterol, Calculated 30 mg/dl Cholesterol/HDL Ratio 6.9 Urine Opiates Screen NEG Urine Methadone, Qualitative NEG Urine Barbiturates NEG Urine Phencyclidine (PCP) Level NEG Ur Amphetamine/Methamphetamine NEG MDMA (Ecstasy) Screen NEG Urine Benzodiazepines Screen NEG Urine Cocaine Metabolite NEG Urine Marijuana (THC) NEG Test 09/20/17 08:45 09/20/17 11:40 09/20/17 12:13 Sodium Level 140 mmol/L Potassium Level 4.0 mmol/L Chloride Level 110 mmol/L Carbon Dioxide Level 26 mmol/L Anion Gap 4.0 mmol/L Blood Urea Nitrogen 13 mg/dl Creatinine 0.98 mg/dl Est Creatinine Clear Calc Drug Dose 92.1 ml/min Estimated GFR () 103.0 Estimated GFR (Non- 88.9 BUN/Creatinine Ratio 13.5 Random Glucose 98 mg/dl Calcium Level 8.2 mg/dl Magnesium Level 2.1 mg/dl Kaolin Activated Coagulation Time 230 SECONDS 208 SECONDS Assessment & Plan CHEST PAIN R/O ACS. Risk factors: HTN, hyperlipidemia, hx CAD S/P IA and stent x2 in 2010. Pt presented to ER with c/o mid/left chest pain and bilateral arm pain x 2.5 hrs. Nitropaste placed in ER. No further CP. In ER no acute ST elevation noted. POC troponin: 0.18. BP: 167/104, P: 98-88, 97% on RA, R: 19 s/p Cardiac Cath: Successful PCI of mid LAD with single GABI (3.0 x 18 Spencer). ASA + Brillinta monitor HTN BP: 167/104, 182/110 -Lopressor 12.5 mg p.o. twice daily -Lisinopril 2.5 mg daily -Labetalol 10 mg IV every 8 hours as needed SBP > 160 ETOH USE Patient drinks 3-6 beers nightly. Last drink 9 PM last night. No history of alcohol withdrawal, seizure or DTs in the past -Alcohol Withdrawal protocol -Thiamine and folic acid p.o. daily TOBACCO USE -Discussed chewing tobacco cessation ELEVATED CREATININE Cr: 1.3. GFR: 63. No baseline labs available -monitor renal functions DVT Prophylaxis -Heparin SQ given Disposition admit tele Full Code Pt does not have PCP for routine care Current Inpatient Medications: Current Inpatient Medications Medications (Trade) Dose Ordered Sig/Abdelrahman Route Start Time Stop Time Status Last Admin Dose Admin Acetaminophen (Tylenol Tab) 650 mg Q4H PRN PO 09/19/17 16:45 10/19/17 16:44 Al Hydrox/Mg Hydrox/Simethicone (Maalox Max Susp) 15 ml Q4H PRN PO 09/19/17 16:45 10/19/17 16:44 Magnesium Hydroxide (Milk Of Magnesia Susp) 30 ml Q12H PRN PO 09/19/17 16:45 10/19/17 16:44 Ondansetron HCl (Zofran Inj) 4 mg Q6H PRN IV 09/19/17 16:45 10/19/17 16:44 Nitroglycerin (Nitrostat Tab) 0.4 mg UD PRN SL 09/19/17 16:45 10/19/17 16:44 Morphine Sulfate (MoRPHine SULFATE INJ) 2 mg Q30M PRN IV 09/19/17 16:45 10/03/17 16:44 Aspirin (Ecotrin Tab) 81 mg QAM PO 09/20/17 09:00 10/20/17 08:59 Polyethylene (Miralax Powder Packet) 17 gm DAILY PRN PO 09/19/17 16:45 10/19/17 16:44 Metoprolol Tartrate (Lopressor Tab) 12.5 mg BID PO 09/19/17 21:00 10/19/17 20:59 09/19/17 21:51 12.5 MG Lorazepam (Ativan Inj) 1 mg ONE PRN IV 09/19/17 17:45 Lisinopril (Zestril Tab) 2.5 mg QAM PO 09/20/17 09:00 10/20/17 08:59 Labetalol HCl (Normodyne IV) 10 mg Q8 PRN IV 09/19/17 17:45 10/19/17 17:44 Gabapentin (Neurontin Tab) 600 mg Q8H PO 09/20/17 14:00 09/21/17 06:01 09/20/17 14:16 600 MG Gabapentin (Neurontin Tab) 600 mg Q12H PO 09/20/17 18:00 09/21/17 06:01 09/20/17 17:44 600 MG Gabapentin (Neurontin Tab) 600 mg Q24H PO 09/23/17 06:00 09/23/17 06:01 Thiamine HCl (Vitamin B-1 Tab) 100 mg QAM PO 09/20/17 09:00 10/20/17 08:59 Folic Acid (Folvite Tab) 1 mg QAM PO 09/20/17 09:00 10/20/17 08:59 Lorazepam (Ativan Inj) 0.5 mg Q4H PRN IV 09/20/17 10:00 10/20/17 09:59 Rosuvastatin Calcium (Crestor Tab) 40 mg QAM PO 09/21/17 09:00 10/21/17 08:59 Sodium Chloride 1,000 ml @ 100 mls/hr Q10H IV 09/20/17 15:00 09/20/17 22:29 09/20/17 15:15 100 MLS/HR Ticagrelor (Brilinta Tab) 90 mg BID PO 09/20/17 21:00 10/20/17 20:59
[2017-09-20] MEDS: TICAGRELOR 90 MG TAB PO SCH (21:03)
--- NOTE | 2017-09-21 02:06 | CARDIAC CATH REPORT ---
INDICATIONS: Non-ST segment elevation myocardial infarction crescendo angina. PROCEDURE: Coronary angiography, left heart catheterization. BRIEF CARDIAC HISTORY: The patient is a 51-year-old male with a history of known coronary disease having undergone prior right coronary artery stenting in 2010, presented with symptoms of crescendo angina, chest pain with exertion and at rest leading to ER visit and hospitalization. There is no heart failure or cardiogenic shock. Troponins jamal consistent with non-ST segment elevation myocardial infarction to 1.6. The patient is referred now for diagnostic cardiac catheterization with echocardiogram demonstrating presumed new wall motion abnormality involving an inferoseptal apex with mild left ventricular dysfunction. ACCESS: Right radial artery. CATHETERS: A 6-Malay long glide sheath, 5-Malay [place] 4.0, 5-Malay straight pigtail. CONTRAST: Nonionic x58 mL. SEDATION: Start time 11:18. End time 11:40 for initial course of the case, circulating Groovideo. MEDICATIONS: Sedation, Versed 1 mg IV, fentanyl 12.5 mcg IV. ADDITIONAL MEDICATIONS: Local infiltration of access site was performed using 1% lidocaine. Following arterial sheath insertion, patient received 250 mcg intra-arterial nicardipine. After central access gained, an additional 2500 units IV heparin was administered. IV FLUIDS: 68 mL normal saline. RADIATION EXPOSURE: 4.1 minutes fluoroscopy, 800 milligrays, DAP score 5563. RESULTS: CORONARY ANGIOGRAPHY: Right dominant coronary anatomy was notable with diffuse coronary atherosclerosis. LEFT MAIN: Large in caliber with mild irregularities, no obstruction. LEFT ANTERIOR DESCENDING: A large long type 3 vessel, which gave rise to a large diagonal branch early in its proximal third followed by a large septal branch at the end of its proximal third. The LAD then continued to do well beyond the apex. Within the left anterior descending, there is diffuse mild to moderate luminal irregularities with a discrete ulcerated 80% stenosis at and involving the origin of a large first septal branch. The left anterior descending diagonal was large and long 40% narrowing in its proximal portion. LEFT CIRCUMFLEX: Left circumflex is large, but nondominant with a very large bifurcating obtuse marginal and a moderate size AV groove portion supplying a large atrial branch, a small posterolateral branch, and collateral fill to the distal right coronary artery. The obtuse marginal had a 40% narrowing in its proximal portion. RIGHT CORONARY ARTERY: The right coronary artery is dominant in distribution, but occluded in its mid portion. Areas of prior stenting are seen in its mid to the acute marginal area. The vessel occluded in this segment. The distal vessel may be seen filling at the distal PDA and 3 posterior ventricular branches retrograde via left to right collateral flow. HEMODYNAMICS: Initial aortic root pressure is 115/60 with a mean of 83. LV pressure is 107/2 with an LVEDP of 9. Aortic root pressure on pullback revealed no transaortic valve gradient and closing pressure for initial portion of the procedure was 113/53 with a mean of 79. FINAL IMPRESSIONS: 1. LAD culprit lesion of 80% of ulceration involving origin of large septal branch. 2. Chronic right coronary occlusion area of prior stenting with collateral fill of distal vessel. 3. Normal left end diastolic pressure. 4. Diffuse [id number] coronary atherosclerosis. RECOMMENDATIONS: The patient will be referred for coronary intervention of left anterior descending in the same setting. TAMMY
[2017-09-21 04:27] VITALS: BP 129/81; PULSE 59; TEMP 36.9; O2SAT 95
[2017-09-21 05:44] LABS: HEMATOCRIT 45.8 % (42-52); HEMOGLOBIN 16.4 g/dL (14.0-18.0); MEAN CELL VOLUME 88.9 fL (80-100); MEAN CORPUSCULAR HEMOGLOBIN 31.8 pg (25-34); MEAN CORPUSCULAR HGB CONC 35.8 g/dl (32-36); MEAN PLATELET VOLUME 10.2 fL (7.4-10.4); PLATELET COUNT 217 K/uL (130-400); RED CELL DISTRIBUTION WIDTH CV 12.7 % (11.5-14.5); RED CELL DISTRIBUTION WIDTH SD 41.5 fL (36.4-46.3); WHITE BLOOD COUNT 7.63 K/uL (4.8-10.8)
[2017-09-21] MEDS: GABAPENTIN 600MG Q12H DOSE PO SCH (06:00)
[2017-09-21 06:02] LABS: PTT PATIENT 28.4 SECONDS (21.0-31.0)
[2017-09-21] MEDS: GABAPENTIN 600MG Q8H DOSE PO SCH (06:14)
[2017-09-21 08:05] VITALS: BP 136/78; PULSE 57; TEMP 36.9; O2SAT 94
[2017-09-21] MEDS ORDERED: ROSUVASTATIN CALCIUM 20 MG TAB PO SCH (09:00)
[2017-09-21] MEDS: LISINOPRIL 2.5 MG TAB PO SCH (10:53)
[2017-09-21] MEDS: THIAMINE HCL 100 MG TAB PO SCH (10:53)
[2017-09-21] MEDS: ASPIRIN 81 MG ECTAB PO SCH (10:54)
[2017-09-21] MEDS: METOPROLOL TARTRATE 25 MG TAB PO SCH (10:54)
[2017-09-21] MEDS: TICAGRELOR 90 MG TAB PO SCH (10:54)
[2017-09-21 11:45] VITALS: BP 121/78; PULSE 70; TEMP 36.8; O2SAT 94
--- NOTE | 2017-09-21 11:54 | PROGRESS NOTE ---
DATE: 09/21/2017 The patient was seen and examined. Chart, medications, telemetry reviewed. SUBJECTIVE: The patient feels well this morning 1-3 beat of complex ventricular ectopy overnight, but otherwise no arrhythmias. Notes no chest pain, shortness of breath, has been ambulatory in room. Right radial access was sealed. OBJECTIVE: VITAL SIGNS: Heart rate is 57, blood pressure is 136/78. NECK: Thin. There is no jugular venous distension. No carotid bruits. LUNGS: Clear to auscultation. CARDIOVASCULAR: Regular. There is no S3 gallop. ABDOMEN: Soft and nontender. EXTREMITIES: Without cyanosis or clubbing. Right radial site as noted is healed with a bandage in place. There is no drainage. NEUROLOGIC: The patient is intact. LABORATORY DATA: White cell count is 7.6, hemoglobin 16.4. IMPRESSION: A 51-year-old male status post acute non-ST segment elevation myocardial infarction with subsequent coronary intervention left anterior descending. EKG demonstrates marked T-wave abnormalities in anterolateral leads, but resolving infarct suspected. PLAN: Continue current medications including beta-petra at low dose with metoprolol 12.5 mg twice per day, PARKER inhibitor, 2.5 mg lisinopril, high-dose statin with rosuvastatin at 40 mg per day and Brilinta and aspirin on discharge. Anticipate followup with cardiology in 3 weeks' time. Patient declines cardiac rehab initially. He is to report any new symptoms or complaints, sublingual nitroglycerin should be part of his discharge recommendations.
--- NOTE | 2017-09-21 13:48 | Progress Note ---
Medicine Progress Note Date & Time of Visit: September 21, 2017 at 13:37. Subjective Seen resting in bed, sitting up, resting Chest pain-free Denies shortness of breath, dizziness, nausea Ambulating with no problems Denies right wrist pain No bleeding States he is ready and would like to be discharged today Objective Last 8 Hrs Date Time Temp Pulse Resp B/P (MAP) Pulse Ox O2 Delivery O2 Flow Rate FiO2 09/21/17 12:00 Room Air 09/21/17 11:45 36.8 70 18 121/78 (92) 94 Room Air 09/21/17 08:05 36.9 57 18 136/78 (97) 94 Room Air 09/21/17 08:00 Room Air Physical Exam: General-oriented x 3 , not in distress Eyes- anicteric ENT- oropharynx clear Neck- supple, no JVD Lungs- clear breath sounds bilaterally Heart- regular rhythm; no murmur, normal rate Abdomen- normal bowel sounds, soft, nontender Extremities- no pretibial edema, no calf tenderness; peripheral pulses intact Right wrist: Dressing in place, no hematoma/tenderness Neuro- alert, oriented x 3; no gross focal deficits Skin- warm & dry Laboratory Results: Last 24 Hours Test 09/21/17 05:14 White Blood Count 7.63 K/uL Red Blood Count 5.15 M/uL Hemoglobin 16.4 g/dL Hematocrit 45.8 % Mean Corpuscular Volume 88.9 fL Mean Corpuscular Hemoglobin 31.8 pg Mean Corpuscular Hemoglobin Concent 35.8 g/dl RDW Standard Deviation 41.5 fL RDW Coefficient of Variation 12.7 % Platelet Count 217 K/uL Mean Platelet Volume 10.2 fL Activated Partial Thromboplast Time 28.4 SECONDS Partial Thromboplastin Ratio 1.1 Assessment & Plan NON-ST ELEVATION VT Troponin elevated up to 1.5, decreased 2.5 EKG showed nonspecific changes in the inferior leads, no actual ST elevation noted September 20, 2017 : s/p Cardiac Cath: Successful PCI of mid LAD with single GABI (3.0 x 18 [place]). Evaluated by cardiologists Dr. Olivera and Dr. Milton Christenesn Cleared for discharge home Discharge medications: Brilinta 90 mg twice a day and aspirin 81 mg daily for at least one year Lisinopril 2.5 mg daily Metoprolol 12.5 mg twice daily Rosuvastatin 40 mg daily Sublingual nitro as needed Continue risk factor control as an outpatient follow-up with Dr. Ed Wang janitorial supervisor in 3 weeks Follow-up with primary care physician in 1 week Patient advised to take medications regularly and not missed any of his medications especially Brilinta and aspirin Also strongly advised to follow-up with primary care doctor and janitorial supervisor as scheduled Also advised smoking cessation and alcohol consumption cessation He verbalized understanding and agreement HTN Medications as noted above ETOH USE -Placed on alcohol Withdrawal protocol No signs of withdrawal observed TOBACCO USE -Discussed chewing tobacco cessation ELEVATED CREATININE Cr: 1.3. GFR: 63. Resolved Monitor as an outpatient Disposition Discharge home follow-up with Dr. Ed Wang janitorial supervisor in 3 weeks Follow-up with primary care physician in 1 week Current Inpatient Medications: Current Inpatient Medications Medications (Trade) Dose Ordered Sig/Abdelrahman Route Start Time Stop Time Status Last Admin Dose Admin Acetaminophen (Tylenol Tab) 650 mg Q4H PRN PO 09/19/17 16:45 10/19/17 16:44 Al Hydrox/Mg Hydrox/Simethicone (Maalox Max Susp) 15 ml Q4H PRN PO 09/19/17 16:45 10/19/17 16:44 Magnesium Hydroxide (Milk Of Magnesia Susp) 30 ml Q12H PRN PO 09/19/17 16:45 10/19/17 16:44 Ondansetron HCl (Zofran Inj) 4 mg Q6H PRN IV 09/19/17 16:45 10/19/17 16:44 Nitroglycerin (Nitrostat Tab) 0.4 mg UD PRN SL 09/19/17 16:45 10/19/17 16:44 Morphine Sulfate (MoRPHine SULFATE INJ) 2 mg Q30M PRN IV 09/19/17 16:45 10/03/17 16:44 Aspirin (Ecotrin Tab) 81 mg QAM PO 09/20/17 09:00 10/20/17 08:59 09/21/17 10:54 81 MG Polyethylene (Miralax Powder Packet) 17 gm DAILY PRN PO 09/19/17 16:45 10/19/17 16:44 Metoprolol Tartrate (Lopressor Tab) 12.5 mg BID PO 09/19/17 21:00 10/19/17 20:59 09/21/17 10:54 12.5 MG Lorazepam (Ativan Inj) 1 mg ONE PRN IV 09/19/17 17:45 Lisinopril (Zestril Tab) 2.5 mg QAM PO 09/20/17 09:00 10/20/17 08:59 09/21/17 10:53 2.5 MG Labetalol HCl (Normodyne IV) 10 mg Q8 PRN IV 09/19/17 17:45 10/19/17 17:44 Thiamine HCl (Vitamin B-1 Tab) 100 mg QAM PO 09/20/17 09:00 10/20/17 08:59 09/21/17 10:53 100 MG Folic Acid (Folvite Tab) 1 mg QAM PO 09/20/17 09:00 10/20/17 08:59 09/21/17 10:54 1 MG Lorazepam (Ativan Inj) 0.5 mg Q4H PRN IV 09/20/17 10:00 10/20/17 09:59 Rosuvastatin Calcium (Crestor Tab) 40 mg QAM PO 09/21/17 09:00 10/21/17 08:59 09/21/17 10:54 40 MG Ticagrelor (Brilinta Tab) 90 mg BID PO 09/20/17 21:00 10/20/17 20:59 09/21/17 10:54 90 MG
[2017-09-21] MEDS ORDERED: BRL90 PO (13:53)
[2017-09-21] MEDS ORDERED: ASPI-320 PO (13:53)
[2017-09-21] MEDS ORDERED: CRS20 PO (13:53)
[2017-09-21] MEDS ORDERED: NTRSLP4 SL (13:53)
[2017-09-21] MEDS ORDERED: LPR25 PO (13:53)
[2017-09-21] MEDS ORDERED: LSN25 PO (13:53)
[2017-09-21] MEDS ORDERED: MULT-589 PO (13:53)
--- NOTE | 2017-09-21 14:09 | Discharge Instructions ---
Discharge Instructions Date of Service September 21, 2017. Admission Reason for Admission: Chest Pain Discharge Discharge Diagnosis / Problem: NON ST ELEVATION MYOCARDIAL INFARCTION Discharge Goals Goal(s): Diagnostic testing, Therapeutic intervention Activity Recommendations Activity Limitations: as noted below (no heavy exertion until re-evaluated by Primary Care Physician or Recruitment Officer) Lifting Limitations: until after follow-up appointment Exercise/Sports Limitations: until after follow-up appointment . Instructions / Follow-Up Instructions / Follow-Up PLEASE REFER TO YOUR NEW MEDICATION LIST AND FOLLOW INSTRUCTIONS CAREFULLY. DO NOT MISS TAKING YOUR MEDICATIONS, ESPECIALLY ASPIRIN AND BRILLINTA. FOLLOW UP WITH YOUR PRIMARY CARE PHYSICIAN IN 3-5 DAYS. FOLLOW UP WITH THE STILL OPERATOR HELPER (FURNACE STOCK INSPECTOR) DR. JAY SCHWARZ IN 3 WEEKS. Address: [address] [place] [address], [place] [address] Tel No: Home Care: * Take your medications exactly as directed. Don't skip doses. * Remember that recovery after a heart attack takes time. Plan to rest for at lease 4-8 weeks while you recover. Then return to normal activity when your doctor says it's okay. * Ask your doctor about joining a heart rehabilitation program. * Tell your doctor if you are feeling depressed. Feelings of sadness are common after a heart attack, but it is important that you speak to someone if you are feeling overwhelmed by these feelings. * If you are having chest pain, call 911 for an ambulance. Do NOT drive yourself to the hospital. * Ask your family members to learn CPR. * Learn to take your own blood pressure and pulse. Keep a record of your results. Ask your doctor when you should seek emergency medical attention. He or she will tell you which blood pressure reading is dangerous. Lifestyle Changes: * Maintain a healthy weight. Get help to lose any extra pounds. * Cut back on salt. * Limit canned, dried, packaged, and fast foods. * Don't add salt to your food. * Season foods with herbs instead of salt when you cook. * Break the smoking habit. Enroll in a stop-smoking program to improve your chances of success. * Limit fatty foods. * Ask your doctor about having your lipid levels checked regularly. * Build up your activity according to your doctor's recommendation. * Ask your doctor when it's okay to resume sexual activity. * Tell your doctor about any erectile dysfunction (ED) medication you are taking. Some ED medications are not safe if you take certain heart medications. * Try to manage stress. Follow Up: It is important for you to keep your follow up appointments with your medical provider. Current Hospital Diet Patient's current hospital diet: AHA Diet (Heart Healthy) Discharge Diet Recommended Diet: AHA Diet (Heart Healthy) Procedures Procedures Performed: CARDIAC CATHETERIZATION Pending Studies Studies pending at discharge: no Laboratory Results Lipid Panel Test 09/20/17 05:52 Range/Units Triglycerides Level 149 0-150 mg/dl Cholesterol Level 276 H 0-200 mg/dl HDL Cholesterol 40 mg/dl Cholesterol/HDL Ratio 6.9 LDL Cholesterol, Calculated 206 mg/dl Medical Emergencies . Who to Call and When: Medical Emergencies: If at any time you feel your situation is an emergency, please call 911 immediately. Call 911 immediately or go to your nearest Emergency Room if you experience any of the following: Warning Signs and Symptoms of a Heart Attack * Chest pain that is not relieved by medication * Shortness of breath . Non-Emergent Contact Non-Emergency issues call your: Primary Care Provider, Recruitment Officer Call Non-Emergent contact if: you have a fever, your pain is not controlled, your pain is worsening, wound has increased drainage, wound has increased redness, wound has increased pain, you have any medication questions . . "Provider Documentation" section prepared by German Garza. . AMI Core Measures Reason no ASA as I/P: Treatment provided - N/A Reason no ASA at D/C: Treatment provided - N/A Reason no statin as I/P: Treatment provided - N/A Reason no statin at D/C: Treatment provided - N/A
--- NOTE | 2017-09-21 14:13 | Discharge Summary ---
Discharge Summary Date of Service September 21, 2017. Discharge Summary Admission Date: September 19, 2017 at 16:48 Discharge Date: September 21, 2017 Discharge Disposition: Home Principal Diagnosis: NON-ST ELEVATION MYOCARDIAL INFARCTION Secondary Diagnoses/Problems: Please refer to hospital course below. Procedures: Procedure Date September 20, 2017. Pre-Procedure Diagnosis Non STEMI AUC Score 8 Post-Procedure Diagnosis Severe CAD, Successful PCI Procedure(s) Performed Drug Eluting Stent Paper Goods Machine Operator Fermin Butadiene Converter Operator(s) Glunt Medication(s) Fentanyl, Heparin, Nitroglycerin, Versed, Lidocaine 1% Ticagrelor Summary of Findings Indication: High-risk NSTEMI Access: 6Fr Right Radial artery Catheters: EBU 3.5 guide Findings: For full details of patient's coronary angiography please cath report dictated by Dr. Olivera. Briefly, patient found to have severe multi-vessel disease including a 90 % stenosis involving the mid LAD. Decision to proceed with PCI. -- PCI -- Antithrombotic therapy: Heparin, ticagrelor Procedure: LM cannulated with EBU 3.5 guide BMW wire passed across lesion into distal vessel Mid LAD lesion predilated with 2.5 compliant balloon Dilated lesion stented with 3.0 x 18 [place] GABI Stent post-dilated with stent balloon. IC vasodilators administered for spasm Post procedure HERNÁN 3 flow, stent well expanded with minimal residual stenosis and no apparent cardiac complications. Arterial Closure: TR Band Summary: 1. Successful PCI of mid LAD with single GABI (3.0 x 18 [place]). Recommendations: To PCU for continued monitoring Loaded with Ticagrelor 180mg in laborer shipyard Continue dual-antiplatelet therapy for at least 1 year Continue statin, and ASCVD risk factor modification per Dr. Olivera Consult cardiac Rehab ECHOCARDIOGRAM * -- Conclusions -- * The left ventricle is normal in size. * There is moderate concentric left ventricular hypertrophy. * There is hypokinesis of the posterior wall at the base as well as the apical portion of the inferior and inferoseptal costa * Ejection Fraction = 50-55%. * There is no significant valvular disease Consultations: HOME IMPROVEMENT ADVISOR DR. JAY OLIVERA/ DR. SABA GILLETTE Pending Studies/Follow-Up: Please refer to hospital course below. Medication Reconciliation New Medications: Multivitamins (Daily [place]) 1 Tab Tab 1 TAB PO DAILY for 30 Days Aspirin (Aspirin EC Low Dose) 81 Mg Ectab 81 MG PO QAM for 30 Days, #30 TABS 1 Refill always take with a full stomach Lisinopril (Lisinopril) 2.5 Mg Tab 2.5 MG PO QAM for 30 Days, #30 TAB 1 Refill Metoprolol Tartrate (Lopressor) 25 Mg Tab 12.5 MG PO BID for 30 Days, #30 TAB 1 Refill Nitroglycerin (Nitrostat) 0.4 Mg/1 Tab Subl 0.4 MG SL UD PRN for Chest Pain for 30 Days, #20 TABS 1 Refill take 1 dose promptly in response to chest pain; If pain is unrelieved or worsened 3 to 5 minutes after 1 dose, call 9-1-1 immediately. Rosuvastatin Calcium (Crestor) 20 Mg Tab 40 MG PO QAM for 30 Days, #60 TAB 1 Refill Ticagrelor (Brilinta) 90 Mg Tab 90 MG PO BID for 30 Days, #60 TAB 1 Refill Discontinued Medications: Aspirin (Aspirin) 325 Mg Tab 325 MG PO HS Admission Information HPI (per Admitting provider): Pt is 51 y/o M with PMH CAD s/p IA and 2 stents in 2010 at [facility] , D presented to ER with c/o CP. Patient states today at work around noon started with mid and left chest pain and bilateral arm/elbow pain described aching increased with walking associated with mild diaphoresis. Patient states that down with some decreased pain and one would walk again pain increased. He took two 325mg aspirin. States upon ER arrival had resolution of chest pain. In ER 1 inch Nitropaste placed. No further chest pains. Denies any associated shortness of breath, dizziness, palpitations. Patient reports has not followed up with PCP or cardiology for years. Has not been on simvastatin "for a while" . Taking aspirin 325 mg daily. Reports his been doing well without chest pain. States since IA notices shortness of breath with extreme exercise ( throwing multiple hay sandi). Denies any increased shortness of breath or noted decreased exercise tolerance. Drinks 3-6 beers a night. Last drink 9 PM last night. Denies fever/chills, diaphoresis, N/V/D/C, DE SOUZA, dizziness, syncope, vision changes, neck pain, orthopnea, palpitations, cough, sore throat, choking , otalgia, rhinorrhea, abdominal pain, indigestion, paresthesias, weakness, extremity weakness, extremity edema, rashes, urinary symptoms, weight loss. Physical Exam (per Admitting): General Appearance: WD/WN, no apparent distress Head: normocephalic, atraumatic Eyes: normal inspection, PERRL, sclerae normal ENT: hearing grossly normal, pharynx normal, + pertinent finding (Mucous membranes moist) Neck: supple, no JVD, trachea midline Respiratory/Chest: lungs clear, normal breath sounds, no respiratory distress Cardiovascular: regular rate, rhythm, no murmur, normal peripheral pulses Abdomen/GI: normal bowel sounds, non tender, soft Extremities/Musculoskelatal: normal inspection, no calf tenderness, normal capillary refill, no pedal edema, normal range of motion, non-tender Neurologic/Psych: alert, normal mood/affect, oriented x 3 Skin: normal color, warm/dry Hospital Course NON-ST ELEVATION MYOCARDIAL INFARCTION Troponin elevated up to 1.5, decreased 2.5 EKG showed nonspecific changes in the inferior leads, no actual ST elevation noted September 20, 2017 : s/p Cardiac Cath: Successful PCI of mid LAD with single GABI (3.0 x 18 [place]). Evaluated by cardiologists Dr. Olivera and Dr. Saba Gillette Cleared for discharge home Discharge medications: Brilinta 90 mg twice a day and aspirin 81 mg daily for at least one year Lisinopril 2.5 mg daily Metoprolol 12.5 mg twice daily Rosuvastatin 40 mg daily Sublingual nitro as needed Continue risk factor control as an outpatient follow-up with Dr. Jay Wang assembler dc field ring in 3 weeks Follow-up with primary care physician in 1 week Patient advised to take medications regularly and not missed any of his medications especially Brilinta and aspirin Also strongly advised to follow-up with primary care doctor and assembler dc field ring as scheduled Also advised smoking cessation and alcohol consumption cessation He verbalized understanding and agreement HTN Medications as noted above ETOH USE -Placed on alcohol Withdrawal protocol No signs of withdrawal observed TOBACCO USE -Discussed chewing tobacco cessation ELEVATED CREATININE Cr: 1.3. GFR: 63. Resolved Monitor as an outpatient Disposition Discharge home follow-up with Dr. Jay Wang assembler dc field ring in 3 weeks Follow-up with primary care physician in 1 week Total time spent on discharge = 35 minutes This includes examination of the patient, discharge planning, medication reconciliation, and communication with other providers. Discharge Instructions Discharge Instructions Date of Service September 21, 2017. Admission Reason for Admission: Chest Pain Discharge Discharge Diagnosis / Problem: NON ST ELEVATION MYOCARDIAL INFARCTION Discharge Goals Goal(s): Diagnostic testing, Therapeutic intervention Activity Recommendations Activity Limitations: as noted below (no heavy exertion until re-evaluated by Primary Care Physician or Paper Goods Machine Operator) Lifting Limitations: until after follow-up appointment Exercise/Sports Limitations: until after follow-up appointment . Instructions / Follow-Up Instructions / Follow-Up PLEASE REFER TO YOUR NEW MEDICATION LIST AND FOLLOW INSTRUCTIONS CAREFULLY. DO NOT MISS TAKING YOUR MEDICATIONS, ESPECIALLY ASPIRIN AND BRILLINTA. FOLLOW UP WITH YOUR PRIMARY CARE PHYSICIAN IN 3-5 DAYS. FOLLOW UP WITH THE HOME IMPROVEMENT ADVISOR (EQUITY STRUCTURER) DR. JAY OLIVERA IN 3 WEEKS. Address: [address] [place] [address] [place] [address] Tel No: Home Care: * Take your medications exactly as directed. Don't skip doses. * Remember that recovery after a heart attack takes time. Plan to rest for at lease 4-8 weeks while you recover. Then return to normal activity when your doctor says it's okay. * Ask your doctor about joining a heart rehabilitation program. * Tell your doctor if you are feeling depressed. Feelings of sadness are common after a heart attack, but it is important that you speak to someone if you are feeling overwhelmed by these feelings. * If you are having chest pain, call 911 for an ambulance. Do NOT drive yourself to the hospital. * Ask your family members to learn CPR. * Learn to take your own blood pressure and pulse. Keep a record of your results. Ask your doctor when you should seek emergency medical attention. He or she will tell you which blood pressure reading is dangerous. Lifestyle Changes: * Maintain a healthy weight. Get help to lose any extra pounds. * Cut back on salt. * Limit canned, dried, packaged, and fast foods. * Don't add salt to your food. * Season foods with herbs instead of salt when you cook. * Break the smoking habit. Enroll in a stop-smoking program to improve your chances of success. * Limit fatty foods. * Ask your doctor about having your lipid levels checked regularly. * Build up your activity according to your doctor's recommendation. * Ask your doctor when it's okay to resume sexual activity. * Tell your doctor about any erectile dysfunction (ED) medication you are taking. Some ED medications are not safe if you take certain heart medications. * Try to manage stress. Follow Up: It is important for you to keep your follow up appointments with your medical provider. Current Hospital Diet Patient's current hospital diet: AHA Diet (Heart Healthy) Discharge Diet Recommended Diet: AHA Diet (Heart Healthy) Procedures Procedures Performed: CARDIAC CATHETERIZATION Pending Studies Studies pending at discharge: no Laboratory Results Lipid Panel Test 09/20/17 05:52 Range/Units Triglycerides Level 149 0-150 mg/dl Cholesterol Level 276 H 0-200 mg/dl HDL Cholesterol 40 mg/dl Cholesterol/HDL Ratio 6.9 LDL Cholesterol, Calculated 206 mg/dl Medical Emergencies . Who to Call and When: Medical Emergencies: If at any time you feel your situation is an emergency, please call 911 immediately. Call 911 immediately or go to your nearest Emergency Room if you experience any of the following: Warning Signs and Symptoms of a Heart Attack * Chest pain that is not relieved by medication * Shortness of breath . Non-Emergent Contact Non-Emergency issues call your: Primary Care Provider, Paper Goods Machine Operator Call Non-Emergent contact if: you have a fever, your pain is not controlled, your pain is worsening, wound has increased drainage, wound has increased redness, wound has increased pain, you have any medication questions . . "Provider Documentation" section prepared by German Garza. . AMI Core Measures Reason no ASA as I/P: Treatment provided - N/A Reason no ASA at D/C: Treatment provided - N/A Reason no statin as I/P: Treatment provided - N/A Reason no statin at D/C: Treatment provided - N/A
[2017-09-21 14:19] VITALS: BP 121/78; PULSE 70; TEMP 36.8; O2SAT 94
[2017-09-21] MEDS ORDERED: GABAPENTIN 600MG Q12H DOSE PO SCH (18:00)
[2017-09-23] MEDS ORDERED: GABAPENTIN 600MG X1 DOSE PO SCH (06:00)
== END 2017-09-21 15:05 | disposition home or self-care (01) | DRG 247 ==
LOC: C.EDB 15:12 → C.2T 16:48 → ENRESERV 16:58
PROVIDERS: ADMIT Hospitalist; ATTEND Internal Medicine
PROC: 4A023N7 Measurement of Cardiac Sampling and Pressure, Left Heart, Percutaneous Approach (ICD-10-PCS; 2017-09-20)
PROC: B211YZZ Fluoroscopy of Multiple Coronary Arteries using Other Contrast (ICD-10-PCS; 2017-09-20)
PROC: 027034Z Dilation of Coronary Artery, One Artery with Drug-eluting Intraluminal Device, Percutaneous Approach (ICD-10-PCS; principal; 2017-09-20 11:02)
DX: I21.4 Non-ST elevation (NSTEMI) myocardial infarction (principal); I25.110 Atherosclerotic heart disease of native coronary artery with unstable angina pectoris; E78.5 Hyperlipidemia, unspecified; I25.2 Old myocardial infarction; F17.220 Nicotine dependence, chewing tobacco, uncomplicated; Z51.81 Encounter for therapeutic drug level monitoring; Z79.82 Long term (current) use of aspirin; Z95.5 Presence of coronary angioplasty implant and graft; Z72.89 Other problems related to lifestyle; Z83.49 Family history of other endocrine, nutritional and metabolic diseases; Z80.8 Family history of malignant neoplasm of other organs or systems